=== PATIENT | female | born 1955 | race African-American/Black ===

== ENCOUNTER 2020-02-11 13:09 | Outpatient (CLI) | payer BC | END 2020-02-11 23:59 | disposition home or self-care (01) | LOC: VAS 13:09 | PROVIDERS: ATTEND Family Medicine | DX: M79.661 Pain in right lower leg (principal) | CPT/HCPCS: 93971 ==

== ENCOUNTER 2020-03-28 11:28 | Outpatient (CLI) | payer BC | END 2020-03-28 23:59 | disposition home or self-care (01) | LOC: WOUND CARE 11:28 → EDSTATUS 11:30 → WOUND CARE 23:59 | PROVIDERS: ATTEND Nurse Practitioner | DX: S81.801A Unspecified open wound, right lower leg, initial encounter (principal); J45.909 Unspecified asthma, uncomplicated; F41.9 Anxiety disorder, unspecified; F32.9 Major depressive disorder, single episode, unspecified; F17.200 Nicotine dependence, unspecified, uncomplicated; X58.XXXA Exposure to other specified factors, initial encounter; Y93.89 Activity, other specified; Y92.89 Other specified places as the place of occurrence of the external cause; Y99.8 Other external cause status | CPT/HCPCS: G0463 ==